=== PATIENT | female | born 1975 | race Two or more races ===

== ENCOUNTER → 2018-01-21 | Outpatient (CLI) | payer OTHER | END | disposition home or self-care (01) | LOC: SONOGRAMA 07:50 | DX: E04.1 Nontoxic single thyroid nodule (principal) ==

== ENCOUNTER 2018-03-10 07:27 | Outpatient (CLI) | payer OTHER | END 2018-03-10 07:47 | disposition home or self-care (01) | LOC: SONOGRAMA 07:27 → MAMO-SONO 09:45 | DX: N84.0 Polyp of corpus uteri (principal) ==

== ENCOUNTER 2018-03-26 07:00 | Day surgery (SDC) | payer OTHER ==
[~2018-03-26] VITALS: Ht 152.4 cm; Wt 81.6 kg
== END 2018-03-27 08:00 | disposition home or self-care (01) ==
LOC: CIR.AMB 07:00 → SURH 07:00 → EDSTATUS 07:00 → CIR.AMB 08:00 → SURH 09:30 → SURG 21:21 → O/R 21:21 → CIR.AMB 03-27 08:00 → SURG 03-27 12:04 → O/R 03-27 12:04
DX: D05.12 Intraductal carcinoma in situ of left breast (principal); N62 Hypertrophy of breast; Z90.12 Acquired absence of left breast and nipple

== ENCOUNTER → 2018-04-27 06:27 | Outpatient (CLI) | payer OTHER | END | disposition home or self-care (01) | LOC: LAB 06:27 | DX: R10.2 Pelvic and perineal pain (principal); E78.2 Mixed hyperlipidemia ==

== ENCOUNTER 2018-07-16 06:00 | Day surgery (SDC) | payer OTHER ==
[~2018-07-16 06:00] MED LIST: CALCIUM500 M1 PO
== END 2018-07-16 17:55 | disposition home or self-care (01) ==
LOC: CIR.AMB 06:00
DX: N65.1 Disproportion of reconstructed breast (principal); Z90.12 Acquired absence of left breast and nipple

== ENCOUNTER 2018-09-22 03:45 | Emergency (ER) | payer OTHER ==
[~2018-09-22] VITALS: Ht 154.9 cm; Wt 77.1 kg
[2018-09-22] MEDS ORDERED: ZYRTEC10 M3 PO (08:26)
[2018-09-22] MEDS ORDERED: ALBUTEROL2.5 MG/3 M IH (08:26)
[2018-09-22] MEDS ORDERED: ZYNCOF 20-400120 ML PO (08:26)
== END 2018-09-22 08:58 | disposition home or self-care (01) ==
LOC: ER 03:45
DX: J06.9 Acute upper respiratory infection, unspecified (principal)

== ENCOUNTER 2018-10-21 05:45 | Day surgery (SDC) | payer OTHER ==
[~2018-10-21 05:45] MED LIST changes: +ALBUTEROL2.5 MG/3 M IH; +ZYNCOF 20-400120 ML PO; +ZYRTEC10 M3 PO
[2018-10-21] MEDS ORDERED: Tylenol #3 PO (09:26)
[2018-10-21] MEDS ORDERED: DOXYCYCLINE HY100 M3 PO (09:26)
== END 2018-10-21 12:05 | disposition home or self-care (01) ==
LOC: CIR.AMB 05:45
DX: N84.0 Polyp of corpus uteri (principal); Z30.2 Encounter for sterilization

== ENCOUNTER 2019-07-22 06:18 | Outpatient (CLI) | payer OTHER ==
[~2019-07-22 06:18] MED LIST changes: +DOXYCYCLINE HY100 M3 PO; +Tylenol #3 PO
== END 2019-07-22 06:26 | disposition home or self-care (01) ==
LOC: LAB 06:18
DX: R53.81 Other malaise (principal); E55.9 Vitamin D deficiency, unspecified; E78.1 Pure hyperglyceridemia; D05.12 Intraductal carcinoma in situ of left breast; E78.49 Other hyperlipidemia

== ENCOUNTER 2022-10-04 13:46 | Emergency (ER) | payer OTHER ==
[~2022-10-04] VITALS: Ht 152.4 cm; Wt 61.2 kg
== END 2022-10-04 21:25 | disposition home or self-care (01) ==
LOC: ER 13:46
DX: N93.9 Abnormal uterine and vaginal bleeding, unspecified (principal)

== ENCOUNTER 2025-05-12 09:00 | Day surgery (SDC) | payer OTHER ==
[2025-05-11 08:28] LABS: BASO % 1.0 % (0.1-1.2); EOS # 0.09 (0.04-0.54); EOS % 2.3 % (0.7-7.0); LYMPH # 1.25 (1.18-3.74); LYMPH % 31.3 % (19.3-53.1); MEAN PLATELET VOLUME 10.20 fl (9.4-12.4); MONO # 0.52 (0.24-0.82); NEUT # 2.08 (1.56-6.13); NEUT % 52.1 % (34.0-71.1); RED CELL DISTRIBUTION WIDTH 12.7 % (11.6-14.4)
[2025-05-11 08:30] LABS: MONO % 13.0 % (4.7-12.5)
[2025-05-11 08:33] LABS: URINE APPEARANCE Clear; URINE BILIRRUBIN Negative (NEGATIVE); URINE BLOOD Negative; URINE COLOR Yellow; URINE GLUCOSE Negative (NEGATIVE); URINE KETONE Negative (NEGATIVE); URINE LEUKOCYTE Trace; URINE NITRATE Negative; URINE PROTEIN Negative (NEGATIVE); URINE UROBILINOGEN 0.2 E.U./dl
[2025-05-11 08:35] LABS: URINE EPITHELIAL CELLS 67.9 uL (0.0-38.8); URINE RBC 13.0 uL (0.0-20.8); URINE WBC 42.9 uL (0.0-23.2)
[2025-05-11 08:48] LABS: INR 1.02
[2025-05-11 09:03] LABS: URINE CAST 1.31 uL (0.0-1.40)
[2025-05-11 09:12] LABS: BUN CREA RATIO 22.0 (7.0-25.0); CREATININE SERUM 0.64 mg/dL (0.55-1.02); GFR 98.63; GLUCOSE FASTING 95.0 mg/dL (65-100); OSMOLALITY SERUM 283.0 MOSM/KG (275-295)
[2025-05-11 09:47] VITALS: BP 126/78
[~2025-05-12] VITALS: Ht 152.4 cm; Wt 62.6 kg
[2025-05-12] MEDS ORDERED: CLINDAMYCIN PHOSPHATE 150 MG/ML (900mg) ONE (10:47)
[2025-05-12] MEDS ORDERED: GENTAMICIN SULFATE 40 MG/ML VIAL ONE (11:50)
[2025-05-12] MEDS ORDERED: POVIDONE-IODINE SCRUB 118 ML BOTT TOP ONE (11:50)
[2025-05-12] MEDS ORDERED: EPINEPHRINE HCL/PF 1 MG/ML AMPUL ONE (11:50)
[2025-05-12] MEDS ORDERED: CEFAZOLIN SODIUM 1,000 MG VIAL ONE (11:51)
[2025-05-12] MEDS ORDERED: POVIDONE-IODINE 118 ML BOTT TOP ONE (11:51)
[2025-05-12] MEDS ORDERED: TRANEXAMIC ACID 100MG/1ML (1000MG) AMPUL ONE (11:58)
[2025-05-12] MEDS ORDERED: ONDANSETRON HCL 2 MG/ML VIAL IV PRN (15:15)
== END 2025-05-12 16:15 | disposition home or self-care (01) ==
LOC: CIR.AMB 09:00
PROVIDERS: ATTEND Plastic Surgery
DX: N65.1 Disproportion of reconstructed breast (principal); C50.811 Malignant neoplasm of overlapping sites of right female breast